=== PATIENT | female | born 1945 | race Asian ===

== ENCOUNTER 2021-08-25 09:54 | Outpatient (CLI) | payer MEDICARE, BC | END 2021-08-25 09:55 | disposition home or self-care (01) | LOC: CSHMAMMO 09:54 | PROVIDERS: ATTEND Internal Medicine | DX: Z12.31 Encounter for screening mammogram for malignant neoplasm of breast (principal); Z80.3 Family history of malignant neoplasm of breast | CPT/HCPCS: 77063; 77067 ==

== ENCOUNTER 2022-09-01 09:42 | Outpatient (CLI) | payer MEDICARE, BC | END 2022-09-01 09:43 | disposition home or self-care (01) | LOC: CSHMAMMO 09:42 | PROVIDERS: ATTEND Internal Medicine | DX: Z12.31 Encounter for screening mammogram for malignant neoplasm of breast (principal); Z80.3 Family history of malignant neoplasm of breast | CPT/HCPCS: 77063; 77067 ==

== ENCOUNTER 2023-09-08 14:47 | Outpatient (CLI) | payer BC, MEDICARE | END 2023-09-08 14:48 | disposition home or self-care (01) | LOC: CSHMAMMO 14:47 | PROVIDERS: ATTEND Internal Medicine | DX: Z12.31 Encounter for screening mammogram for malignant neoplasm of breast (principal); Z80.3 Family history of malignant neoplasm of breast | CPT/HCPCS: 77063; 77067 ==

== ENCOUNTER 2024-07-19 10:26 | Outpatient (CLI) | payer MEDICARE | END 2024-07-19 10:27 | disposition home or self-care (01) | LOC: CSHCT 10:26 | PROVIDERS: ATTEND Orthopaedic Surgery | DX: M25.871 Other specified joint disorders, right ankle and foot (principal); M67.961 Unspecified disorder of synovium and tendon, right lower leg; Z98.1 Arthrodesis status; M67.471 Ganglion, right ankle and foot ==